=== PATIENT | female | born 1975 | race Caucasian/White ===

== ENCOUNTER 2017-10-22 10:25 | Outpatient (CLI) | payer BC ==
--- NOTE | 2017-10-22 15:30 | ULT ---
RIGHT UPPER QUADRANT ULTRASOUND: DATE: 10/22/17. COMPARISON: None. HISTORY: Intermittent right upper quadrant pain for 6 months. TECHNIQUE: Multiplanar, harris scale, sonographic imaging of the right upper quadrant obtained. FINDINGS: Imaged pancreas is unremarkable. Distal body and tail are obscured by bowel gas. No discrete focal liver lesion or intrahepatic biliary dilatation is noted. The hepatic parenchyma is mildly echogenic and heterogeneous, which may signify hepatocellular disease, such as steatosis. The right kidney me asures 9.2 cm in craniocaudal dimension and demonstrates no stone, hydronephrosis, or mass. The comm on bile duct measures 5 mm, within normal limits. The employment law specialist reports a negative Glaser's sign. No gallbladder wall thickening or pericholecystic fluid. No gallstones noted. IMPRESSION: No acute findings. POS: [facility]
== END 2017-10-22 10:26 | disposition home or self-care (01) ==
LOC: NAV ULT 10:25
PROVIDERS: ATTEND Internal Medicine
DX: R10.11 Right upper quadrant pain (principal)
CPT/HCPCS: 76705